=== PATIENT | male | born 1965 | race Caucasian/White ===

== ENCOUNTER 2018-12-02 17:49 | Emergency (ER) | payer OTHER ==
[2018-12-02 18:45] VITALS: BP 157/88
--- NOTE | 2018-12-23 15:59 | UC ---
Dental HPI - HPI Summary HPI Summary: 53 year old male with c/o mouth sores for 2-3 weeks, patient states sores appeared after he quit smoking, initially had 1 near lip, that resolved, but new one appearred in other areas of mouth. has a h/o dentures with last fitting years ago. + sinus pressure and cough x several days - History of Current Complaint Chief Complaint: UCGI Stated Complaint: MOUTH SORE CONCERN Time Seen by Provider: 12/02/18 18:32 Hx Obtained From: Patient, Family/Coating Inspector - Onset/Duration: Sudden Onset, Lasting Weeks Severity: Mild Pain Intensity: 0 Pain Scale Used: 0-10 Numeric - Allergies/Home Medications Allergies/Adverse Reactions: Allergies Allergy/AdvReac Type Severity Reaction Status Date / Time No Known Allergies Allergy Verified 12/02/18 18:32 Home Medications: Home Medications Aspirin [Aspir-Low] 81 mg PO DAILY 12/02/18 [History Confirmed 12/02/18] B Comp/E/Folic Acid/Mins35/Soy [[facility] Menopause Support Caplet] 1 each PO DAILY [History Confirmed 12/02/18] Magnesium 30 mg PO DAILY 12/02/18 [History Confirmed 12/02/18] Rosuvastatin Calcium 5 mg PO QPM 12/02/18 [History Confirmed 12/02/18] PMH/Surg Hx/FS Hx/Imm Hx Previously Healthy: No - h/o TOB use - Surgical History Surgical History: None - Family History Known Family History: Positive: Cardiac Disease, Hypertension - Social History Alcohol Use: None Substance Use Type: None Smoking Status (MU): Former Smoker Type: Cigarettes Amount Used/How Often: 1/2 PPD Length of Time of Smoking/Using Tobacco: 35 YRS Review of Systems All Other Systems Reviewed And Are Negative: Yes ENT: Positive: Dental Pain, Sore Throat Respiratory: Positive: Cough Is Patient Immunocompromised?: No Physical Exam Triage Information Reviewed: Yes Appearance: Well-Appearing, No Pain Distress, Well-Nourished Vital Signs: Initial Vital Signs Temp 98.1 F 12/02/18 18:39 Pulse 73 12/02/18 18:39 Resp 22 12/02/18 18:39 BP 157/88 12/02/18 18:39 Pulse Ox 99 12/02/18 18:39 Vital Signs Reviewed: Yes Eyes: Positive: Conjunctiva Clear ENT: Positive: Pharynx normal, Uvula midline, Other - when dentures remove, erythematous area near posterior hard palate, linear, with yellow drainage noted , likely due to poorly fitting dentures causing irritation/ abscess. Multiple white patches, unable to be scrapped off with tongue depressor, non- painful over L cheek mucousa. Small area of erosion over R lower lip mucosa.. Negative: Sinus tenderness Dental: Positive: Other: - teeth removed Neck: Positive: Supple, Nontender, No Lymphadenopathy. Negative: Nuchal Rigidity, Enlarged Nodes @ Respiratory: Positive: Chest non-tender, Lungs clear, Normal breath sounds, No respiratory distress, No accessory muscle use. Negative: Crackles, Rhonchi, Stridor, Wheezing Dental Complaint Course/Dx - Differential Dx/Diagnosis Differential Diagnosis/Dx: Dental Abscess, Dental Caries Provider Diagnosis: Dental abscess, Bronchitis Discharge - Sign-Out/Discharge Documenting (check all that apply): Patient Departure All imaging exams completed and their final reports reviewed: No Studies - Discharge Plan Condition: Good Disposition: HOME Prescriptions: Amoxicillin/Clavulanate TAB* [Augmentin TAB 875*] 875 mg PO BID #14 tab Patient Education Materials: Dental Abscess (ED), Acute Bronchitis (ED) Referrals: Ben Saenz MD [Primary Care Provider] - Jourdan Bryan MD [Medical Doctor] - (make appointment to be seen for mouth sores ) Additional Instructions: - ANtibiotics for upper mouth sore near denture line due to probable infection - Follow up with ENT for lower mouth sores for possible biopsy - Billing Disposition and Condition Condition: GOOD Disposition: Home
== END 2018-12-02 19:18 | disposition home or self-care (01) ==
LOC: UCCORT 17:49
DX: K04.7 Periapical abscess without sinus (principal); J40 Bronchitis, not specified as acute or chronic; Z79.82 Long term (current) use of aspirin; Z87.891 Personal history of nicotine dependence
CPT/HCPCS: 99212; G0463

== ENCOUNTER 2019-03-29 19:51 | Emergency (ER) | payer OTHER ==
[2019-03-29 20:07] VITALS: BP 147/77
--- NOTE | 2019-03-29 20:19 | UC ---
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 right after doing this hurts to straight drove 5 hours home OK as long as he doesn't move no bowel or bladder dysfunction has had right sided sciatica in past but this is completely different no hx CA took motrin 6 hours ago with no relief - History of Current Complaint Chief Complaint: UCBackPain Stated Complaint: BACK PAIN Time Seen by Provider: 03/29/19 20:09 Hx Obtained From: Patient Onset/Duration: Sudden Onset, Lasting Hours Timing: Constant Severity Initially: Severe Severity Currently: Severe Pain Intensity: 10 Pain Scale Used: 0-10 Numeric Back Pain: Is Diffuse Character: Throbbing, Spasmodic, Stiffness Aggravating Factor(s): Movement, Bending Alleviating Factor(s): Position Associated Signs And Symptoms: Positive: Negative Full Body (No Head): 1 - pain/spasm - Allergies/Home Medications Allergies/Adverse Reactions: Allergies Allergy/AdvReac Type Severity Reaction Status Date / Time No Known Allergies Allergy Verified 03/29/19 19:57 PMH/Surg Hx/FS Hx/Imm Hx Previously Healthy: Yes Endocrine History: Dyslipidemia Cardiovascular History: Hypertension - Surgical History Surgical History: None - Family History Known Family History: Positive: Cardiac Disease, Hypertension - Social History Alcohol Use: None Substance Use Type: None Smoking Status (MU): Former Smoker Type: Cigarettes Amount Used/How Often: 1/2 PPD Length of Time of Smoking/Using Tobacco: 35 YRS Review of Systems All Other Systems Reviewed And Are Negative: Yes Constitutional: Positive: Negative Skin: Positive: Negative Eyes: Positive: Negative ENT: Positive: Negative Respiratory: Positive: Negative Cardiovascular: Positive: Negative Gastrointestinal: Positive: Negative Genitourinary: Positive: Negative Motor: Positive: Negative Neurovascular: Positive: Negative Musculoskeletal: Positive: Myalgia - lower back Neurological: Positive: Negative Physical Exam Triage Information Reviewed: Yes Appearance: Well-Appearing, No Pain Distress, Well-Nourished Vital Signs: Initial Vital Signs Temp 98.8 F 03/29/19 19:58 Pulse 68 03/29/19 19:58 Resp 18 03/29/19 19:58 BP 147/77 03/29/19 19:58 Pulse Ox 99 03/29/19 19:58 Vital Signs Reviewed: Yes Eyes: Positive: Conjunctiva Clear ENT: Positive: Hearing grossly normal. Negative: Nasal congestion, Nasal drainage, Trismus, Muffled voice, Hoarse voice Dental Exam: Normal Neck: Positive: Supple, Nontender, No Lymphadenopathy Respiratory: Positive: Lungs clear, Normal breath sounds, No respiratory distress, No accessory muscle use Cardiovascular: Positive: RRR, No Murmur Abdomen Description: Positive: Nontender, No Organomegaly, Soft. Negative: Bruit Bowel Sounds: Positive: Present Musculoskeletal: Positive: ROM Intact, No Edema Neurological: Positive: Alert Psychological Exam: Normal Skin Exam: Normal - Additional Comments limited ROM back, tenses up and stops moving due to spasms, -SLR NO midline maryellen tenderness Back Pain Course/Dx - Differential Dx/Diagnosis Provider Diagnosis: Acute lumbar myofascial strain Discharge - Sign-Out/Discharge Documenting (check all that apply): Patient Departure All imaging exams completed and their final reports reviewed: No Studies - Discharge Plan Condition: Stable Disposition: HOME Prescriptions: Cyclobenzaprine (NF) [Cyclobenzaprine 5 MG (NF)] 5 - 10 mg PO TID PRN #30 tab PRN Reason: Spasms - Back Naproxen [Naproxen 500 mg tab] 500 mg PO BID PRN #20 tablet PRN Reason: Pain Patient Education Materials: Low Back Strain (ED) Referrals: Ben Saenz MD [Primary Care Provider] - As Soon As Possible - Billing Disposition and Condition Condition: STABLE Disposition: Home
[2019-03-29] MEDS ORDERED: Ketorolac INJ* 30 MG/ML 1 ML VIAL IM ONE (20:24)
[2019-03-29] MEDS ORDERED: Cyclobenzaprine TAB* 10 MG PO ONE (20:25)
[2019-03-29] MEDS ORDERED: Naproxen TAB* 250 MG PO ONE ×2 (20:26→20:39)
== END 2019-03-29 21:04 | disposition home or self-care (01) ==
LOC: UCCORT 19:51
DX: S39.012A Strain of muscle, fascia and tendon of lower back, initial encounter (principal); X50.0XXA Overexertion from strenuous movement or load, initial encounter; Y93.89 Activity, other specified; Y92.9 Unspecified place or not applicable; Z87.891 Personal history of nicotine dependence; I10 Essential (primary) hypertension
CPT/HCPCS: 96372; 99213; A9270-GY; G0463; J1885